=== PATIENT | male | born 1995 | race African-American/Black ===

== ENCOUNTER 2019-12-10 10:22 | Emergency (ER) | payer OTHER ==
[~2019-12-10] VITALS: Ht 200.7 cm; Wt 81.6 kg
[2019-12-10 10:29] VITALS: BP 121/75
[2019-12-10] MEDS ORDERED: TETANUS-DIPTH-ACEL PERTUSSIS 0.5ML SYR Tdap IM ONE (10:45)
[2019-12-10] MEDS ORDERED: LIDOCAINE 1% HCL (LOCAL ANESTH.) INJ 20ML MDV IJ ONE (10:45)
== END 2019-12-10 11:31 | disposition home or self-care (01) ==
LOC: ER 10:22
DX: S61.212A Laceration without foreign body of right middle finger without damage to nail, initial encounter (principal); S41.112A Laceration without foreign body of left upper arm, initial encounter; F17.210 Nicotine dependence, cigarettes, uncomplicated; W54.0XXA Bitten by dog, initial encounter; Y93.89 Activity, other specified; Y92.89 Other specified places as the place of occurrence of the external cause; Y99.8 Other external cause status
CPT/HCPCS: 12004; 99283; J2001

== ENCOUNTER 2020-07-08 08:20 | Emergency (ER) | payer OTHER, MEDICAID ==
[~2020-07-08] VITALS: Ht 198.1 cm; Wt 77.1 kg
[2020-07-08 08:24] VITALS: BP 117/85
== END 2020-07-08 09:33 | disposition home or self-care (01) ==
LOC: EDBD 08:20 → ER 08:20
DX: S63.92XA Sprain of unspecified part of left wrist and hand, initial encounter (principal); S01.81XA Laceration without foreign body of other part of head, initial encounter; S01.01XA Laceration without foreign body of scalp, initial encounter; F17.210 Nicotine dependence, cigarettes, uncomplicated; F12.10 Cannabis abuse, uncomplicated; V43.52XA Car driver injured in collision with other type car in traffic accident, initial encounter; Y93.89 Activity, other specified; Y92.488 Other paved roadways as the place of occurrence of the external cause; Y99.8 Other external cause status
CPT/HCPCS: 12001; 12011

== ENCOUNTER 2020-07-26 11:23 | Emergency (ER) | payer OTHER ==
[~2020-07-26] VITALS: Ht 198.1 cm; Wt 77.1 kg
[2020-07-26 12:44] VITALS: BP 131/74
== END 2020-07-26 12:30 | disposition home or self-care (01) ==
LOC: ER 11:23
DX: S01.01XD Laceration without foreign body of scalp, subsequent encounter (principal); F17.210 Nicotine dependence, cigarettes, uncomplicated; X58.XXXD Exposure to other specified factors, subsequent encounter

== ENCOUNTER 2023-12-19 23:58 | Emergency (ER) | payer OTHER | END 2023-12-20 01:16 | disposition left against medical advice (07) | LOC: ER 23:58 | DX: S69.90XA Unspecified injury of unspecified wrist, hand and finger(s), initial encounter (principal); Z53.21 Procedure and treatment not carried out due to patient leaving prior to being seen by health care provider; X58.XXXA Exposure to other specified factors, initial encounter; Y93.89 Activity, other specified; Y92.89 Other specified places as the place of occurrence of the external cause; Y99.8 Other external cause status ==